=== PATIENT | male | born 1960 | race Hispanic/Latino ===

== ENCOUNTER 2022-05-12 11:50 | Emergency (ER) | payer BC ==
[~2022-05-12] VITALS: Ht 177.8 cm; Wt 81.6 kg
[2022-05-12 12:46] LABS: CLARITY,URINE CLEAR (CLEAR); COLOR,URINE YELLOW (YELLOW); KETONES,URINE NEGATIVE (NEGATIVE); LEUKOCYTE ESTERASE ,URINE NEGATIVE (NEGATIVE); NITRITE,URINE NEGATIVE (NEGATIVE); PROTEIN,URINE DIPSTICK NEGATIVE (NEGATIVE); URINE UROBILINOGEN 0.2 mg/dL (0.2 - 1)
[2022-05-12] MEDS ORDERED: FLOMAX0.4 MG PO (12:56)
[2022-05-12 13:08] LABS: BACTERIA,URINE FEW /HPF; EPITHELIAL CELLS,URINE FEW /LPF; RBC,URINE 0-5 /HPF (0-5)
== END 2022-05-12 13:32 | disposition home or self-care (01) ==
LOC: ER 11:56
DX: R35.1 Nocturia (principal); R10.30 Lower abdominal pain, unspecified
CPT/HCPCS: 81001; 87086; 99283